=== PATIENT | female | born 1960 | race Caucasian/White ===

== ENCOUNTER 2017-01-20 02:01 | Emergency (ER) | payer OTHER, MEDICAID ==
[~2017-01-20] VITALS: Ht 162.6 cm; Wt 97.5 kg
[2017-01-20 07:54] LABS: Basophils # (auto) 0 uL; Basophils % (auto) 0.5 % (0.0-2.0); Eosinophils # (auto) 0.1 uL; Eosinophils % (auto) 2.5 % (0.0-7.0); Hematocrit 38.8 % (36.0-46.0); Hemoglobin 13.4 g/dL (12.2-16.2); Lymphocytes # (auto) 1.2 uL; Lymphocytes % (auto) 24.9 % (10.0-50.0); Mean Corpuscular Hemoglobin 28.1 pg (28.0-32.0); Mean Corpuscular Hgb Conc. 34.7 g/dL (32.0-36.0); Mean Corpuscular Volume 80.9 fL (80.0-100.0); Mean Platelet Volume 8.9 fL (7.4-10.4); Monocytes # (auto) 0.5 uL; Monocytes % (auto) 11.6 % (0.0-12.0); Neutrophils # (auto) 2.8 uL; Neutrophils % (auto) 60.5 % (37.0-80.0); Platelet Count (auto) 250 10^3/uL (140-450); White Blood Cell 4.6 10^3/uL (4.4-10.8)
[2017-01-20 08:08] LABS: Anion Gap 7 (5-15); BUN/Creatinine Ratio 13.5; Blood Urea Nitrogen 10 mg/dL (7-18); Calcium 9.7 mg/dL (8.5-10.1); Carbon Dioxide 27 mmol/L (21-32); Chloride 108 mmol/L (98-107); GFR African American 104 mL/min; GFR Non-African American 86 mL/min; Glucose 138 mg/dL (74-106); Potassium 3.7 mmol/L (3.5-5.1); Sodium 142 mmol/L (136-145)
[2017-01-20 10:06] VITALS: BP 156/76
== END 2017-01-20 12:14 | disposition home or self-care (01) ==
LOC: ER 02:01
DX: F20.9 Schizophrenia, unspecified (principal); Z88.0 Allergy status to penicillin; E11.9 Type 2 diabetes mellitus without complications; I10 Essential (primary) hypertension; F31.9 Bipolar disorder, unspecified; F41.9 Anxiety disorder, unspecified
CPT/HCPCS: 36415; 80048; 80307; 80320; 85025

== ENCOUNTER 2017-01-30 13:19 | Emergency (ER) | payer OTHER, MEDICAID ==
[~2017-01-30] VITALS: Ht 160 cm; Wt 99.8 kg
[2017-01-30] MEDS ORDERED: HALOPERIDOL LACTATE 5 MG/ML INJ VIAL IM ONE (13:45)
[2017-01-30] MEDS ORDERED: LORazepam 2MG/ML-1ML VIAL IV ONE (13:45)
[2017-01-30] MEDS ORDERED: diphenhdrAMINE HCL 50 MG/1 ML VL IV ONE (13:45)
[2017-01-30 14:17] LABS: Basophils # (auto) 0.1 uL; Basophils % (auto) 0.9 % (0.0-2.0); Eosinophils # (auto) 0.1 uL; Eosinophils % (auto) 1.2 % (0.0-7.0); Hematocrit 44.9 % (36.0-46.0); Hemoglobin 15.2 g/dL (12.2-16.2); Lymphocytes # (auto) 1.6 uL; Lymphocytes % (auto) 23.1 % (10.0-50.0); Mean Corpuscular Hemoglobin 27.7 pg (28.0-32.0); Mean Corpuscular Hgb Conc. 33.8 g/dL (32.0-36.0); Mean Platelet Volume 8.8 fL (7.4-10.4); Monocytes # (auto) 0.6 uL; Monocytes % (auto) 8.8 % (0.0-12.0); Neutrophils # (auto) 4.7 uL; Platelet Count (auto) 358 10^3/uL (140-450); Red Cell Distribution Width 15.2 % (11.6-16.0); White Blood Cell 7.1 10^3/uL (4.4-10.8)
[2017-01-30 14:27] LABS: Albumin 4.4 g/dL (3.4-5.0); Alkaline Phosphatase 98 U/L (45-117); Anion Gap 11 (5-15); Aspartate Aminotransferase 28 U/L (15-37); BUN/Creatinine Ratio 17.1; Bilirubin, Total 0.9 mg/dL (0.2-1.0); Blood Urea Nitrogen 12 mg/dL (7-18); Calcium 9.9 mg/dL (8.5-10.1); Carbon Dioxide 23 mmol/L (21-32); Chloride 106 mmol/L (98-107); GFR African American 111 mL/min; GFR Non-African American 92 mL/min; Glucose 114 mg/dL (74-106); HEMOLYSIS - HIL 1; ICTERIA - HIL 1; LIPEMIA - HIL 1; Potassium 3.6 mmol/L (3.5-5.1); Sodium 140 mmol/L (136-145); Total Protein 8.1 g/dL (6.4-8.2)
[2017-01-31] MEDS ORDERED: LORazepam 0.5 MG TAB PO ONE (00:15)
[2017-01-31 00:38] VITALS: BP 155/74
== END 2017-01-31 01:09 | disposition short-term general hospital (02) ==
LOC: EDBD 13:19 → ER 13:24
DX: F20.89 Other schizophrenia (principal); F29 Unspecified psychosis not due to a substance or known physiological condition; I10 Essential (primary) hypertension; E11.9 Type 2 diabetes mellitus without complications; E07.89 Other specified disorders of thyroid; F31.9 Bipolar disorder, unspecified
CPT/HCPCS: 36415; 80053; 80307; 80320; 82962; 85025; 93005; 94761; 96372; 96374; 96375; 99285; J1200; J1630; J2060

== ENCOUNTER 2017-03-06 13:37 | Emergency (ER) | payer OTHER, MEDICAID ==
[~2017-03-06] VITALS: Ht 160 cm; Wt 94.8 kg
[2017-03-06 15:17] LABS: Albumin 3.6 g/dL (3.4-5.0); Anion Gap 11 (5-15); Aspartate Aminotransferase 15 U/L (15-37); BUN/Creatinine Ratio 10.6; Blood Urea Nitrogen 7 mg/dL (7-18); Calcium 8.5 mg/dL (8.5-10.1); Carbon Dioxide 25 mmol/L (21-32); Chloride 92 mmol/L (98-107); GFR African American 119 mL/min; GFR Non-African American 98 mL/min; Glucose 117 mg/dL (74-106); Potassium 3.9 mmol/L (3.5-5.1); Sodium 128 mmol/L (136-145)
[2017-03-06 15:19] LABS: Acetaminophen < 2.0 ug/mL (10-30); Salicylate < 1.7 mg/dL (2.8-20.0)
[2017-03-06 15:20] LABS: Alkaline Phosphatase 91 U/L (45-117); Bilirubin, Total 0.7 mg/dL (0.2-1.0)
[2017-03-06 15:28] LABS: Basophils # (auto) 0 uL; Basophils % (auto) 0.5 % (0.0-2.0); CONDITION Y; Eosinophils # (auto) 0.2 uL; Eosinophils % (auto) 2.3 % (0.0-7.0); Hematocrit 38.1 % (36.0-46.0); Lymphocytes # (auto) 1.3 uL; Lymphocytes % (auto) 20.5 % (10.0-50.0); Mean Corpuscular Hemoglobin 28.3 pg (28.0-32.0); Mean Corpuscular Hgb Conc. 34.1 g/dL (32.0-36.0); Mean Corpuscular Volume 82.8 fL (80.0-100.0); Mean Platelet Volume 9.3 fL (7.4-10.4); Monocytes # (auto) 0.6 uL; Monocytes % (auto) 8.4 % (0.0-12.0); Neutrophils # (auto) 4.5 uL; Neutrophils % (auto) 68.3 % (37.0-80.0); Platelet Count (auto) 304 10^3/uL (140-450); Red Cell Distribution Width 13.7 % (11.6-16.0); White Blood Cell 6.5 10^3/uL (4.4-10.8)
[2017-03-06 17:01] LABS: Urine Bilirubin Negative (Negative); Urine Blood Negative /uL (Negative); Urine Color Yellow (Yellow); Urine Glucose Normal (Normal); Urine Ketone Negative (Negative); Urine RBC <1 /hpf (0 - 4); Urine Squamous Epithelial Cell FEW /hpf (<5); Urine Urobilinogen Normal (Negative)
[2017-03-06 17:02] LABS: Urine Nitrite POSITIVE (Negative)
[2017-03-06] MEDS ORDERED: QUET50TA PO (17:10)
[2017-03-06] MEDS ORDERED: NORT25CA PO (17:10)
[2017-03-06] MEDS ORDERED: OMEP20CA74 PO (17:10)
[2017-03-06] MEDS ORDERED: LOSA25TA8 PO (17:10)
[2017-03-06] MEDS ORDERED: ATOR40TA52 PO (17:10)
[2017-03-06] MEDS ORDERED: OMEG306C OR (17:21)
[2017-03-06] MEDS ORDERED: OXCA300T26 PO (17:21)
[2017-03-06 18:14] VITALS: BP 173/82
== END 2017-03-06 17:45 | disposition home or self-care (01) ==
LOC: ER 13:43
DX: B34.9 Viral infection, unspecified (principal); R11.2 Nausea with vomiting, unspecified; F20.9 Schizophrenia, unspecified; E11.9 Type 2 diabetes mellitus without complications; I10 Essential (primary) hypertension; E07.89 Other specified disorders of thyroid; Z88.0 Allergy status to penicillin
CPT/HCPCS: 36415; 80053; 80307; 80320; 80329; 81001; 85025

== ENCOUNTER 2017-05-06 16:57 | Emergency (ER) | payer OTHER, MEDICAID ==
[~2017-05-06] VITALS: Ht 160 cm; Wt 90.3 kg
[~2017-05-06 16:57] MED LIST: ATOR40TA52 PO; LOSA25TA8 PO; NORT25CA PO; OMEG306C OR; OMEP20CA74 PO; OXCA300T26 PO; QUET50TA PO
[2017-05-06 20:58] LABS: Basophils # (auto) 0.1 uL; Basophils % (auto) 0.8 % (0.0-2.0); CONDITION Y; DEFINITIVE SEE PRINTOUT; Eosinophils # (auto) 0.8 uL; Eosinophils % (auto) 9.7 % (0.0-7.0); Hematocrit 36.4 % (36.0-46.0); Hemoglobin 12.2 g/dL (12.2-16.2); Lymphocytes # (auto) 2.4 uL; Lymphocytes % (auto) 29.5 % (10.0-50.0); Mean Corpuscular Hemoglobin 28.1 pg (28.0-32.0); Mean Corpuscular Hgb Conc. 33.6 g/dL (32.0-36.0); Mean Corpuscular Volume 83.7 fL (80.0-100.0); Mean Platelet Volume 8.9 fL (6.9-10.8); Monocytes # (auto) 0.7 uL; Monocytes % (auto) 8.6 % (0.0-12.0); Neutrophils # (auto) 4.1 uL; Neutrophils % (auto) 51.4 % (37.0-80.0); Platelet Count (auto) 340 10^3/uL (140-450); Red Cell Distribution Width 15.4 % (11.8-14.3)
[2017-05-06 21:32] LABS: Anion Gap 8 (5-15); BUN/Creatinine Ratio 18.3; Blood Urea Nitrogen 15 mg/dL (7-18); Calcium 8.9 mg/dL (8.5-10.1); Carbon Dioxide 27 mmol/L (21-32); Chloride 108 mmol/L (98-107); GFR African American 92 mL/min; GFR Non-African American 76 mL/min; Glucose 130 mg/dL (74-106); Potassium 3.7 mmol/L (3.5-5.1); Sodium 143 mmol/L (136-145)
[2017-05-06 21:59] LABS: Acetaminophen < 2.0 ug/mL (10-30); Salicylate < 1.7 mg/dL (2.8-20.0)
[2017-05-06] MEDS ORDERED: LORazepam 0.5 MG TAB PO ONE (22:45)
[2017-05-07] MEDS ORDERED: TEMAZEPAM 15 MG CAP PO ONE
[2017-05-07 10:54] VITALS: BP 149/70
== END 2017-05-07 11:15 | disposition short-term general hospital (02) ==
LOC: ER 16:59
DX: F31.9 Bipolar disorder, unspecified (principal); R45.851 Suicidal ideations; E11.9 Type 2 diabetes mellitus without complications; I10 Essential (primary) hypertension; F20.9 Schizophrenia, unspecified
CPT/HCPCS: 36415; 71020; 80048; 80307; 80320; 80329; 82962; 85025

== ENCOUNTER 2017-05-17 09:18 | Emergency (ER) | payer OTHER, MEDICAID ==
[~2017-05-17] VITALS: Ht 165.1 cm; Wt 70.3 kg
[2017-05-17] MEDS ORDERED: SODIUM CHLORIDE 0.9% 1,000 ML IV ONE (11:24)
[2017-05-17 11:41] LABS: Basophils # (auto) 0 uL; Basophils % (auto) 0.7 % (0.0-2.0); Eosinophils # (auto) 0.3 uL; Eosinophils % (auto) 4.8 % (0.0-7.0); Hematocrit 37.6 % (36.0-46.0); Hemoglobin 12.7 g/dL (12.2-16.2); Lymphocytes % (auto) 14.7 % (10.0-50.0); Mean Corpuscular Hemoglobin 28.1 pg (28.0-32.0); Mean Corpuscular Hgb Conc. 33.7 g/dL (32.0-36.0); Mean Corpuscular Volume 83.3 fL (80.0-100.0); Mean Platelet Volume 9.4 fL (6.9-10.8); Monocytes # (auto) 0.6 uL; Monocytes % (auto) 8.8 % (0.0-12.0); Neutrophils # (auto) 4.8 uL; Nucleated Red Blood Cells % 0.1 %; Platelet Count (auto) 203 10^3/uL (140-450); Red Cell Distribution Width 14.6 % (11.8-14.3); White Blood Cell 6.7 10^3/uL (4.4-10.8)
[2017-05-17 11:54] LABS: Urine Bilirubin Negative (Negative); Urine Blood Negative /uL (Negative); Urine Color Yellow (Yellow); Urine Glucose 4+ mg/dL (Normal); Urine Ketone Negative (Negative); Urine Nitrite POSITIVE (Negative); Urine RBC <1 /hpf (0 - 4); Urine Squamous Epithelial Cell FEW /hpf (<5); Urine Urobilinogen Normal (Negative)
[2017-05-17 11:54] LABS: Albumin 3.3 g/dL (3.4-5.0); BUN/Creatinine Ratio 18.5; Bilirubin, Total 0.4 mg/dL (0.2-1.0); Calcium 8.5 mg/dL (8.5-10.1); Magnesium 2.1 mg/dL (1.6-2.6); Potassium 3.9 mmol/L (3.5-5.1); Total Protein 6.9 g/dL (6.4-8.2)
[2017-05-17] MEDS ORDERED: cefTRIAXone 1GM/50ML D5W 50 ML IV ONE (14:00)
[2017-05-17 14:54] VITALS: BP 167/80
== END 2017-05-17 15:22 | disposition short-term general hospital (02) ==
LOC: EDBD 09:18 → ER 09:18
DX: E11.65 Type 2 diabetes mellitus with hyperglycemia (principal); R53.1 Weakness; N39.0 Urinary tract infection, site not specified; E05.90 Thyrotoxicosis, unspecified without thyrotoxic crisis or storm; E44.0 Moderate protein-calorie malnutrition; F20.9 Schizophrenia, unspecified; I10 Essential (primary) hypertension; F31.9 Bipolar disorder, unspecified
CPT/HCPCS: 36415; 71020; 80053; 81001; 83735; 84443; 85025; 93005; 94761; 96361; 96365; 99285; J0696; J7030

== ENCOUNTER 2017-05-18 19:26 | Emergency (ER) | payer OTHER, MEDICAID ==
[~2017-05-18] VITALS: Ht 167.6 cm; Wt 81.6 kg
[2017-05-19 07:00] VITALS: BP 159/72
== END 2017-05-19 12:08 | disposition home or self-care (01) ==
LOC: EDBD 19:26 → ER 19:28
DX: F20.9 Schizophrenia, unspecified (principal); F31.9 Bipolar disorder, unspecified; I10 Essential (primary) hypertension; E11.9 Type 2 diabetes mellitus without complications; Z88.0 Allergy status to penicillin

== ENCOUNTER → 2017-05-19 | Emergency (ER) | payer OTHER, MEDICAID | END | disposition left against medical advice (07) | LOC: ER 08:38 | DX: Z04.6 Encounter for general psychiatric examination, requested by authority (principal); Z53.21 Procedure and treatment not carried out due to patient leaving prior to being seen by health care provider ==